=== PATIENT | female | born 1965 | race Caucasian/White ===

== ENCOUNTER 2023-09-20 09:31 | Inpatient (IN) | payer OTHER ==
[~2023-09-20] VITALS: Ht 160 cm; Wt 63.5 kg
[2023-09-20 11:28] LABS: INR 1.02; PARTIAL THROMBOPLASTIN TIME 23.9 SECONDS (22.0-34.0); PROTHROMBIN TIME 10.7 SECONDS (9.0-11.5)
[2023-09-20 11:36] LABS: MEAN CORPUSCULAR HGB CONC 28.9 g/dl (32.0-36.0); PLATELET COUNT 969 K/uL (150-450); RED BLOOD COUNT 4.13 M/uL (4.00-6.00); RED CELL DISTRIBUTION WIDTH 24.1 % (11.5-14.5)
[2023-09-20 11:45] LABS: ALBUMIN 2.9 gm/dL (3.4-5.0); ALKALINE PHOSPHATASE 96 U/L (50-136); ALT/SGPT 9 U/L (12-78); ANION GAP 8 (10.0-20.0); AST/SGOT 22 U/L (15-37); BILIRUBIN,CONJUGATED < 0.10 mg/dL (0.0-0.2); BLOOD UREA NITROGEN 13 mg/dL (7-18); BUN CREA RATIO 33 (7.0-25.0); CALCIUM 9.2 mg/dL (8.5-10.1); CARBON DIOXIDE 27 mEq/L (21-32); CHLORIDE 107 mmol/L (98-107); GFR 165.11; GLUCOSE FASTING 115 mg/dL (65-100); LIPASE 21 U/L (13-75); MEAN CELL VOLUME 52.7 fL (80.00-100.00); MEAN CORPUSCULAR HEMOGLOBIN 15.2 pg (27.00-32.0); OSMOLALITY SERUM 277 MOSM/KG (275-295); POTASSIUM 4.11 mEq/L (3.5-5.1); SODIUM 138 mmol/L (136-145); TOTAL PROTEIN 7.7 gm/dL (6.4-8.2)
[2023-09-20 11:46] LABS: HEMATOCRIT 21.8 % (36.0-45.00); HEMOGLOBIN 6.3 g/dL (12.0-15.00)
[2023-09-20 11:48] LABS: AMYLASE 18 U/L (25-115)
[2023-09-20 12:23] LABS: URINE APPEARANCE Clear; URINE BILIRRUBIN Negative (NEGATIVE); URINE BLOOD Negative; URINE COLOR Yellow; URINE GLUCOSE Negative (NEGATIVE); URINE LEUKOCYTE Negative; URINE NITRATE Negative; URINE PROTEIN Negative (NEGATIVE); URINE UROBILINOGEN 0.2 E.U./dl
[2023-09-20 12:26] LABS: URINE BACTERIA 142.3 uL (0.0-1933); URINE EPITHELIAL CELLS 7.3 uL (0.0-38.8); URINE WBC 2.6 uL (0.0-23.2)
[2023-09-20 12:30] LABS: URINE RBC 0.5 uL (0.0-20.8)
[2023-09-21 20:59] LABS: RED BLOOD COUNT 4.77 M/uL (4.00-6.00)
[2023-09-21 21:05] LABS: HEMOGLOBIN 9.4 g/dL (12.0-15.00); MEAN CELL VOLUME 62.9 fL (80.00-100.00); MEAN CORPUSCULAR HEMOGLOBIN 19.7 pg (27.00-32.0); MEAN CORPUSCULAR HGB CONC 31.4 g/dl (32.0-36.0); RED CELL DISTRIBUTION WIDTH 34.6 % (11.5-14.5)
[2023-09-21 21:06] LABS: PLATELET COUNT 687 K/uL (150-450)
[2023-09-22 17:24] LABS: ob POSITIVE (NEGATIVE)
[2023-09-23 08:09] LABS: CALCIUM 8.4 mg/dL (8.5-10.1); CREATININE SERUM 0.36 mg/dL (0.55-1.02); GFR 186.46; MAGNESIUM 2.2 mg/dL (1.8-2.4); PHOSPHOROUS 4.2 mg/dL (2.5-4.9); POTASSIUM 3.57 mEq/L (3.5-5.1)
[2023-09-23 09:32] LABS: MEAN CORPUSCULAR HGB CONC 31.5 g/dl (32.0-36.0); RED BLOOD COUNT 4.64 M/uL (4.00-6.00)
[2023-09-23 09:57] LABS: HEMOGLOBIN 9.1 g/dL (12.0-15.00); MEAN CELL VOLUME 62.4 fL (80.00-100.00); MEAN CORPUSCULAR HEMOGLOBIN 19.6 pg (27.00-32.0)
[2023-09-23 09:58] LABS: PLATELET COUNT 623 K/uL (150-450)
[2023-09-23] MEDS ORDERED: INTEGRA PLUS C1 EACH PO (12:56)
[2023-09-23] MEDS ORDERED: COLACE100 MG PO (12:56)
[2023-09-23] MEDS ORDERED: LEVOTHYROXINE25 MCG PO (12:57)
== END 2023-09-23 14:17 | disposition home or self-care (01) | DRG 394 ==
LOC: ER 09:31 → MEDI 18:18
PROVIDERS: General Practice; ADMIT Internal Medicine; ATTEND Internal Medicine
PROC: 30233N1 Transfusion of Nonautologous Red Blood Cells into Peripheral Vein, Percutaneous Approach (ICD-10-PCS; 2023-09-20)
PROC: BB24Y0Z Computerized Tomography (CT Scan) of Bilateral Lungs using Other Contrast, Unenhanced and Enhanced (ICD-10-PCS; principal; 2023-09-22)
PROC: 0DBK8ZX Excision of Ascending Colon, Via Natural or Artificial Opening Endoscopic, Diagnostic (ICD-10-PCS; 2023-09-22)
PROC: 3E0H8KZ Introduction of Other Diagnostic Substance into Lower GI, Via Natural or Artificial Opening Endoscopic (ICD-10-PCS; 2023-09-22)
DX: D12.2 Benign neoplasm of ascending colon (principal); K92.2 Gastrointestinal hemorrhage, unspecified; K63.89 Other specified diseases of intestine

== ENCOUNTER 2023-09-26 12:47 | Outpatient (CLI) | payer OTHER ==
[~2023-09-26 12:47] MED LIST: COLACE100 MG PO; INTEGRA PLUS C1 EACH PO; LEVOTHYROXINE25 MCG PO
== END 2023-09-26 12:57 | disposition home or self-care (01) ==
LOC: RAD 12:47
PROVIDERS: ATTEND Surgery
DX: C18.2 Malignant neoplasm of ascending colon (principal); R59.0 Localized enlarged lymph nodes; K62.5 Hemorrhage of anus and rectum; D64.9 Anemia, unspecified

== ENCOUNTER 2023-09-27 11:52 | Outpatient (CLI) | payer OTHER | END 2023-09-27 11:54 | disposition home or self-care (01) | LOC: EKG 11:52 → LAB 11:52 | PROVIDERS: ATTEND Surgery | DX: Z01.810 Encounter for preprocedural cardiovascular examination (principal); D37.4 Neoplasm of uncertain behavior of colon; C18.2 Malignant neoplasm of ascending colon; R59.0 Localized enlarged lymph nodes; K62.5 Hemorrhage of anus and rectum; D64.9 Anemia, unspecified ==

== ENCOUNTER 2023-10-03 11:21 | Inpatient (IN) | payer OTHER ==
[~2023-10-03] VITALS: Ht 157.5 cm; Wt 70.3 kg
[2023-10-07 08:15] LABS: ALBUMIN 2.3 gm/dL (3.4-5.0); CALCIUM 8.6 mg/dL (8.5-10.1); CREATININE SERUM 0.36 mg/dL (0.55-1.02); GFR 186.46; PHOSPHOROUS 3.2 mg/dL (2.5-4.9); POTASSIUM 4.2 mEq/L (3.5-5.1)
[2023-10-07 09:03] LABS: HEMATOCRIT 28.6 % (36.0-45.00); MEAN CORPUSCULAR HGB CONC 30.9 g/dl (32.0-36.0); RED BLOOD COUNT 4.52 M/uL (4.00-6.00)
[2023-10-07 09:32] LABS: HEMOGLOBIN 8.8 g/dL (12.0-15.00); MEAN CELL VOLUME 63.3 fL (80.00-100.00); MEAN CORPUSCULAR HEMOGLOBIN 19.4 pg (27.00-32.0); PLATELET COUNT 758 K/uL (150-450); RED CELL DISTRIBUTION WIDTH 34.5 % (11.5-14.5)
[2023-10-09 14:17] LABS: HEMATOCRIT 27.3 % (36.0-45.00); HEMOGLOBIN 8.2 g/dL (12.0-15.00); MEAN CELL VOLUME 64.2 fL (80.00-100.00); MEAN CORPUSCULAR HEMOGLOBIN 19.2 pg (27.00-32.0); MEAN CORPUSCULAR HGB CONC 30.2 g/dl (32.0-36.0); RED BLOOD COUNT 4.25 M/uL (4.00-6.00); RED CELL DISTRIBUTION WIDTH 33.5 % (11.5-14.5)
[2023-10-09 14:18] LABS: PLATELET COUNT 700 K/uL (150-450)
[2023-10-10] MEDS ORDERED: FOLIC ACID1 MG (11:12)
[2023-10-10] MEDS ORDERED: INTEGRA PLUS C1 EAC1 (11:12)
[2023-10-10] MEDS ORDERED: FERROUS SULFAT325 MG (11:12)
[2023-10-10] MEDS ORDERED: DULCOLAX5 MG PO (11:14)
[2023-10-11 08:31] LABS: HEMATOCRIT 29.5 % (36.0-45.00); MEAN CORPUSCULAR HEMOGLOBIN 19.7 pg (27.00-32.0); MEAN CORPUSCULAR HGB CONC 31.1 g/dl (32.0-36.0); RED BLOOD COUNT 4.65 M/uL (4.00-6.00)
[2023-10-11 08:35] LABS: MEAN CELL VOLUME 63.4 fL (80.00-100.00)
[2023-10-11 08:36] LABS: HEMOGLOBIN 9.2 g/dL (12.0-15.00); PLATELET COUNT 989 K/uL (150-450)
[2023-10-11 08:55] LABS: ALBUMIN 2.4 gm/dL (3.4-5.0); BILIRUBIN TOTAL 0.25 mg/dL (0.3-1.2); CALCIUM 9.1 mg/dL (8.5-10.1); CREATININE SERUM 0.39 mg/dL (0.55-1.02); GFR 170.01; MAGNESIUM 2.1 mg/dL (1.8-2.4); PHOSPHOROUS 3.9 mg/dL (2.5-4.9); POTASSIUM 4.14 mEq/L (3.5-5.1); TOTAL PROTEIN 6.4 gm/dL (6.4-8.2)
[2023-10-13 07:28] LABS: HEMATOCRIT 27.2 % (36.0-45.00); MEAN CORPUSCULAR HGB CONC 31.3 g/dl (32.0-36.0); PLATELET COUNT 760 K/uL (150-450); RED BLOOD COUNT 4.35 M/uL (4.00-6.00)
[2023-10-13 07:30] LABS: HEMOGLOBIN 8.5 g/dL (12.0-15.00); MEAN CELL VOLUME 62.5 fL (80.00-100.00); MEAN CORPUSCULAR HEMOGLOBIN 19.5 pg (27.00-32.0); RED CELL DISTRIBUTION WIDTH 33.5 % (11.5-14.5)
[2023-10-13 08:02] LABS: ALBUMIN 2.3 gm/dL (3.4-5.0); BILIRUBIN TOTAL 0.31 mg/dL (0.3-1.2); CALCIUM 8.7 mg/dL (8.5-10.1); CREATININE SERUM 0.3 mg/dL (0.55-1.02); GFR 230.12; GLOBULINA 3.7 G/DL (2.4-3.5); MAGNESIUM 1.7 mg/dL (1.8-2.4); PHOSPHOROUS 3.3 mg/dL (2.5-4.9); POTASSIUM 3.81 mEq/L (3.5-5.1)
== END 2023-10-13 10:31 | disposition home or self-care (01) | DRG 330 ==
LOC: O/R 10-06 05:33 → SURH 10-06 05:33
PROVIDERS: Internal Medicine; Surgery; ADMIT Surgery; ATTEND Surgery
PROC: 07BB0ZZ Excision of Mesenteric Lymphatic, Open Approach (ICD-10-PCS; 2023-10-06)
PROC: 0DNW0ZZ Release Peritoneum, Open Approach (ICD-10-PCS; 2023-10-06)
PROC: 0DB80ZZ Excision of Small Intestine, Open Approach (ICD-10-PCS; 2023-10-06)
PROC: 0DBU0ZZ Excision of Omentum, Open Approach (ICD-10-PCS; 2023-10-06)
PROC: 0WJG4ZZ Inspection of Peritoneal Cavity, Percutaneous Endoscopic Approach (ICD-10-PCS; 2023-10-06)
PROC: 3E0F7SF Introduction of Other Gas into Respiratory Tract, Via Natural or Artificial Opening (ICD-10-PCS; 2023-10-06)
PROC: 0DTF0ZZ Resection of Right Large Intestine, Open Approach (ICD-10-PCS; principal; 2023-10-06 11:15)
PROC: 0D9670Z Drainage of Stomach with Drainage Device, Via Natural or Artificial Opening (ICD-10-PCS; 2023-10-11)
PROC: 0DP6XUZ Removal of Feeding Device from Stomach, External Approach (ICD-10-PCS; 2023-10-13)
DX: C18.2 Malignant neoplasm of ascending colon (principal); C18.0 Malignant neoplasm of cecum; K62.5 Hemorrhage of anus and rectum; K91.30 Postprocedural intestinal obstruction, unspecified as to partial versus complete; J95.89 Other postprocedural complications and disorders of respiratory system, not elsewhere classified; J98.11 Atelectasis; R59.0 Localized enlarged lymph nodes; D64.9 Anemia, unspecified; K66.0 Peritoneal adhesions (postprocedural) (postinfection); Z53.31 Laparoscopic surgical procedure converted to open procedure; D75.838 Other thrombocytosis; D64.89 Other specified anemias; E88.09 Other disorders of plasma-protein metabolism, not elsewhere classified

== ENCOUNTER 2023-11-30 05:53 | Day surgery (SDC) | payer OTHER ==
[2023-11-17 10:20] LABS: HEMATOCRIT 31.9 % (36.0-45.00); MEAN CORPUSCULAR HEMOGLOBIN 21.2 pg (27.00-32.0); MEAN CORPUSCULAR HGB CONC 31.3 g/dl (32.0-36.0); PLATELET COUNT 417 K/uL (150-450); RED BLOOD COUNT 4.72 M/uL (4.00-6.00)
[2023-11-17 10:21] LABS: MEAN CELL VOLUME 67.7 fL (80.00-100.00); RED CELL DISTRIBUTION WIDTH 29.9 % (11.5-14.5)
[2023-11-17 10:43] LABS: INR 0.98; PARTIAL THROMBOPLASTIN TIME 24.8 SECONDS (22.0-34.0); PROTHROMBIN TIME 10.3 SECONDS (9.0-11.5)
[2023-11-17 11:05] LABS: ALBUMIN 3.3 gm/dL (3.4-5.0); BILIRUBIN TOTAL 0.18 mg/dL (0.3-1.2); CALCIUM 9.3 mg/dL (8.5-10.1); CREATININE SERUM 0.46 mg/dL (0.55-1.02); GFR 140.01; GLOBULINA 4.7 G/DL (2.4-3.5); POTASSIUM 4.27 mEq/L (3.5-5.1)
[~2023-11-30 05:53] MED LIST changes: +DULCOLAX5 MG PO; +FERROUS SULFAT325 MG; +FOLIC ACID1 MG; +INTEGRA PLUS C1 EAC1
[2023-11-30] MEDS ORDERED: TRAMADOL HCL50 MG PO (12:16)
== END 2023-11-30 14:25 | disposition home or self-care (01) ==
LOC: CIR.AMB 05:53 → AMB-ENDOS 08:45 → CIR.AMB 08:45
PROVIDERS: ATTEND Surgery
DX: C18.2 Malignant neoplasm of ascending colon (principal); Z20.822 Contact with and (suspected) exposure to COVID-19

== ENCOUNTER 2025-07-03 05:39 | Day surgery (SDC) | payer OTHER ==
[2025-07-01 09:41] LABS: BASO % 0.6 % (0.1-1.2); EOS # 0.19 (0.04-0.54); EOS % 2.6 % (0.7-7.0); LYMPH # 2.14 (1.18-3.74); LYMPH % 29.8 % (19.3-53.1); MEAN PLATELET VOLUME 9.40 fl (9.4-12.4); MONO # 0.36 (0.24-0.82); MONO % 5.0 % (4.7-12.5); NEUT # 4.44 (1.56-6.13); NEUT % 61.9 % (34.0-71.1); RED CELL DISTRIBUTION WIDTH 13.8 % (11.6-14.4)
[2025-07-01 09:59] LABS: URINE APPEARANCE Clear; URINE BILIRRUBIN Negative (NEGATIVE); URINE BLOOD Negative; URINE COLOR Yellow; URINE GLUCOSE Negative (NEGATIVE); URINE KETONE Negative (NEGATIVE); URINE LEUKOCYTE Negative; URINE NITRATE Negative; URINE PROTEIN Negative (NEGATIVE); URINE UROBILINOGEN 0.2 E.U./dl
[2025-07-01 10:00] LABS: URINE BACTERIA 89.9 uL (0.0-1933); URINE EPITHELIAL CELLS 2.4 uL (0.0-38.8)
[2025-07-01 10:04] LABS: INR 1.0
[2025-07-01 10:30] LABS: URINE CAST 0.43 uL (0.0-1.40); URINE RBC 1.9 uL (0.0-20.8); URINE WBC 1.6 uL (0.0-23.2)
[2025-07-01 11:01] LABS: ALT/SGPT 29.0 U/L (12-78); AST/SGOT 26.0 U/L (15-37); BILIRUBIN TOTAL 0.48 mg/dL (0.3-1.2); BUN CREA RATIO 23.0 (7.0-25.0); CREATININE SERUM 0.62 mg/dL (0.55-1.02); GFR 98.86; GLOBULINA 4.1 G/DL (2.4-3.5); GLUCOSE FASTING 125.0 mg/dL (65-100); OSMOLALITY SERUM 285.0 MOSM/KG (275-295)
[~2025-07-03 05:39] MED LIST changes: +TRAMADOL HCL50 MG PO
[2025-07-03] MEDS ORDERED: BUPIVACAINE HCL 30 ML VIAL IJ ONE (08:45)
[2025-07-03] MEDS ORDERED: LIDOCAINE HCL 1%/EPINEPHRINE 20ML VIAL IJ ONE (09:00)
[2025-07-03] MEDS ORDERED: CEFAZOLIN SODIUM 1,000 MG VIAL IV ONE (09:00)
[2025-07-03] MEDS ORDERED: TRAMADOL HCL50 MG PO (10:09)
== END 2025-07-03 11:40 | disposition home or self-care (01) ==
LOC: CIR.AMB 05:39
PROVIDERS: ATTEND Surgery
DX: T82.514A Breakdown (mechanical) of infusion catheter, initial encounter (principal); C18.2 Malignant neoplasm of ascending colon